=== PATIENT | male | born 1965 | race Caucasian/White ===

== ENCOUNTER 2017-09-28 14:55 | Emergency (ER) | payer BC ==
[~2017-09-28 14:55] MED LIST: ALPR.25 PO; RIVA15 PO; RIVA20 PO
[2017-09-28 15:52] VITALS: BP 148/80; PULSE 66; RESP 16; TEMP 98.4; O2SAT 97
--- NOTE | 2017-09-28 16:20 | RADRPT ---
EXAM DATE/TIME: 09/28/2017 16:10 [facility] COMPARISON: No previous studies available for comparison. INDICATIONS : Fell today at the bank MEDICAL HISTORY : None. SURGICAL HISTORY : None. ENCOUNTER: Initial ACUITY: 1 day PAIN SCORE: 8/10 LOCATION: Left wrist FINDINGS: Three view examination of the left wrist demonstrates no soft tissue swelling, dislocation, or fractu re. The carpal bones are in normal alignment. The joint spaces are maintained. Bony mineralization is normal. CONCLUSION: No acute fracture or dislocation. Mateo Simon MD on September 28, 2017 at 16:16 Board Certified Radiologist. This report was verified electronically.
--- NOTE | 2017-09-28 18:22 | PD ---
HPI Chief Complaint: Fall Time Seen by Provider: 18:00 Travel History International Travel<30 days: No Contact w/Intl Traveler<30days: No Traveled to known affect area: No History of Present Illness HPI 52-year-old male presents emergency department for evaluation of left wrist pain after slip and fall that occurred today. States that he was at his bank and he hit a wet puddle slipped and fell landing on his left hand and wrist. Patient describes a FOOSH injury. States right now his left wrist is tender to palpation and with range of motion, he denies numbness or tingling. Feels like he has decreased ROM of his wrist. Says the pain is mild-moderate and is concerned there is a fracture. Says his left elbow and arm are tender to palpation but has FROM. Says he has trouble with rotation of his arm secondary to pain. Says he is not sure if he hit his head does not believe he lost consciousness but he does have mild muscle stiffness. He denies chronic medical problems or medication use. He denies blood thinner or anticoagulant use. PFSH Past Medical History Medical History: Denies Significant Hx Anxiety: Yes ("sometimes") Depression: No Cancer: Yes (family history 1 degree relative lung cancer) Cardiovascular Problems: No Chest Pain: Yes (this admission) Endocrine: No Gastrointestinal Disorders: No Genitourinary: No Musculoskeletal: No Psychiatric: No Reproductive: No Respiratory: No Migraines: Yes Tetanus Vaccination: Unknown Past Surgical History Surgical History: No Previous Surgery Body Medical Devices: ivc filter Social History Alcohol Use: No Tobacco Use: No Substance Use: No Allergies-Medications (Allergen,Severity, Reaction): Coded Allergies: codeine (Unverified Allergy, Unknown, 09/28/17) Reported Meds & Prescriptions Reported Meds & Active Scripts Active No Active Prescriptions or Reported Medications Review of Systems Except as stated in HPI: all other systems reviewed are Neg Physical Exam Narrative GENERAL: Well-nourished, well-developed patient. SKIN: Focused skin assessment warm/dry. HEAD: Normocephalic. EYES: No scleral icterus. No injection or drainage. EOMI NECK: Supple, trachea midline. No JVD or lymphadenopathy. No midline tenderness , mild tenderness palpation of the left paraspinous region CARDIOVASCULAR: Regular rate and rhythm without murmurs, gallops, or rubs. RESPIRATORY: Breath sounds equal bilaterally. No accessory muscle use. GASTROINTESTINAL: Abdomen soft, non-tender, nondistended. MUSCULOSKELETAL: No cyanosis, or edema. Mild tenderness palpation to the left paraspinous region about the L1 region. No midline tenderness of the spine. Left upper extremity- tender to palpation of the elbow without deformities, full range of motion, neurovascular intact. TTP to snuffbox and wrist joint. [employer] strength 5 out of 5. BACK: Nontender without obvious deformity. No CVA tenderness. Data Data Last Documented VS Vital Signs Date Time Temp Pulse Resp B/P (MAP) Pulse Ox O2 Delivery O2 Flow Rate FiO2 09/28/17 15:52 98.4 66 16 148/80 (102) 97 Orders Orders Wrist, Complete ([id number]) (09/28/17 ) Ct Brain W/O Iv Contrast(Rout) (09/28/17 ) Ct Cerv Spine W/O Contrast (09/28/17 ) Elbow, Complete (4 Vws) (09/28/17 ) Humerus (Min 2vws) (09/28/17 ) Ed Discharge Order (09/28/17 19:40) Splinting (09/28/17 ) Fiberglass Thumb Spica Adult (09/28/17 ) MDM Medical Decision Making Medical Screen Exam Complete: Yes Emergency Medical Condition: Yes Differential Diagnosis Left wrist sprain, fracture, contusion Narrative Course 52-year-old male presents emergency department for evaluation of a FOOSH type injury resulting in left wrist and left arm pain. Says that he slipped on a wet floor at his bank landing on his left arm. Says that he does not believe he had his head but is unsure. Vital signs are stable. Imaging studies ordered. Last Impressions Wrist X-Ray 09/28/17 0000 Signed Impressions: Service Date/Time: Thursday, September 28, 2017 16:10 - CONCLUSION: No acute fracture or dislocation. Mateo Simon MD Humerus X-Ray 09/28/17 0000 Signed Impressions: Service Date/Time: Thursday, September 28, 2017 18:32 - CONCLUSION: Normal examination for a patient of this age. Sivakumar Jackson MD Head CT 09/28/17 0000 Signed Impressions: Service Date/Time: Thursday, September 28, 2017 18:36 - CONCLUSION: 1. No acute intracranial abnormalities. Sivakumar Jackson MD Elbow X-Ray 09/28/17 0000 Signed Impressions: Service Date/Time: Thursday, September 28, 2017 18:35 - CONCLUSION: Normal examination for a patient of this age. Sivakumar Jackson MD Cervical Spine CT 09/28/17 0000 Signed Impressions: Service Date/Time: Thursday, September 28, 2017 18:36 - CONCLUSION: Normal examination for a patient of this age. Sivakumar Jackson MD He denies chronic medical issues and medication use. Imaging studies given to patient. Patient will placed in a thumb spica splint. Advised to follow-up with orthopedics within 1 week. I stressed the importance of this follow-up. He may use Tylenol or Motrin per package instructions for pain relief. Diagnosis Primary Impression: Left wrist sprain Qualified Codes: S63.502A - Unspecified sprain of left wrist, initial encounter Additional Impressions: Arm contusion Qualified Codes: S40.022A - Contusion of left upper arm, initial encounter Head contusion Qualified Codes: S00.03XA - Contusion of scalp, initial encounter Referrals: Miles Velarde MD Orthopedist Departure Forms: Tests/Procedures, Work Release Enter return to work date: Sep 29, 2017 Special Instructions: Avoid excessive use of the left hand. Avoid heavy lifting. Until cleared by primary care physician or electronic data interchange specialist. Additional Instructions: Use ice or heat for symptom relief. Elevate the joint above the heart to reduce swelling. You may use compression with Omero wrap or similar to reduce swelling. If symptoms persist or worsen, return to the emergency department. Follow up with your primary care physician within 2 days. Follow-up with an orthopedic physician for further evaluation of your wrist pain. I recommend you follow-up within 7 days for further evaluation. Use the splint daily. Scripts No Active Prescriptions or Reported Meds Disposition: 01 DISCHARGE HOME Condition: Stable Love Bal Sep 28, 2017 18:22
--- NOTE | 2017-09-28 18:58 | RADRPT ---
EXAM DATE/TIME: 09/28/2017 18:36 [facility] COMPARISON: No previous studies available for comparison. INDICATIONS : Trauma: fall RADIATION DOSE: 66.34 CTDIvol (mGy) MEDICAL HISTORY : None SURGICAL HISTORY : None. ENCOUNTER: Initial ACUITY: 1 day PAIN SCALE: 8/10 LOCATION: cranial TECHNIQUE: Multiple contiguous axial images were obtained of the head. Using automated exposure control and adj ustment of the mA and/or kV according to patient size, radiation dose was kept as low as reasonably a chievable to obtain optimal diagnostic quality images. DICOM format image data is available electro nically for review and comparison. FINDINGS: CEREBRUM: The ventricles are normal for age. No evidence of midline shift, mass lesion, hemorrhage or acute in farction. No extra-axial fluid collections are seen. POSTERIOR FOSSA: The cerebellum and brainstem are intact. The 4th ventricle is midline. The cerebellopontine angle i s unremarkable. EXTRACRANIAL: The visualized portion of the orbits is intact. SKULL: The calvaria is intact. No evidence of skull fracture. CONCLUSION: 1. No acute intracranial abnormalities. Sivkaumar Jackson MD on September 28, 2017 at 18:52 Board Certified Radiologist. This report was verified electronically.
--- NOTE | 2017-09-28 19:13 | RADRPT ---
EXAM DATE/TIME: 09/28/2017 18:32 [facility] COMPARISON: No previous studies available for comparison. INDICATIONS : Left arm pain after falling today. MEDICAL HISTORY : None. SURGICAL HISTORY : None. ENCOUNTER: Initial ACUITY: 1 day PAIN SCORE: 8/10 LOCATION: Left elbow. FINDINGS: Two view examination of the left humerus demonstrates no evidence of fracture or dislocation. Bony m ineralization is normal. The soft tissue structures are intact. CONCLUSION: Normal examination for a patient of this age. Sivakumar Jackson MD on September 28, 2017 at 19:10 Board Certified Radiologist. This report was verified electronically.
--- NOTE | 2017-09-28 19:14 | RADRPT ---
EXAM DATE/TIME: 09/28/2017 18:35 [facility] COMPARISON: No previous studies available for comparison. INDICATIONS : Left elbow pain after falling today. MEDICAL HISTORY : None. SURGICAL HISTORY : None. ENCOUNTER: Initial ACUITY: 1 day PAIN SCORE: 8/10 LOCATION: Left elbow. FINDINGS: Multiple view examination of the left elbow demonstrates no soft tissue swelling, joint effusion, or fracture. The osseous structures are in normal alignment. Bony mineralization is normal. CONCLUSION: Normal examination for a patient of this age. Sivakumar Jackson MD on September 28, 2017 at 19:11 Board Certified Radiologist. This report was verified electronically.
--- NOTE | 2017-09-28 19:30 | RADRPT ---
EXAM DATE/TIME: 09/28/2017 18:36 [facility] COMPARISON: No previous studies available for comparison. INDICATIONS : Trauma; fall. RADIATION DOSE: 17.01 CTDIvol (mGy) MEDICAL HISTORY : None SURGICAL HISTORY : None. ENCOUNTER: Initial ACUITY: 1 day PAIN SCALE: 8/10 LOCATION: Bilateral neck TECHNIQUE: Volumetric scanning of the cervical spine was performed. Multiplanar reconstructions in the sagittal, coronal and oblique axial planes were performed. Using automated exposure control and adjustment o f the mA and/or kV according to patient size, radiation dose was kept as low as reasonably achievable to obtain optimal diagnostic quality images. DICOM format image data is available electronically f or review and comparison. FINDINGS: VERTEBRAE: Normal vertebral body height. ALIGNMENT: No evidence of subluxation. C2-C3: The bony spinal canal is normal in size. No evidence of disc bulge or herniation. The neural forami na are bilaterally patent. C3-C4: The bony spinal canal is normal in size. No evidence of disc bulge or herniation. The neural forami na are bilaterally patent. C4-C5: The bony spinal canal is normal in size. No evidence of disc bulge or herniation. The neural forami na are bilaterally patent. C5-C6: The bony spinal canal is normal in size. No evidence of disc bulge or herniation. The neural forami na are bilaterally patent. C6-C7: The bony spinal canal is normal in size. No evidence of disc bulge or herniation. The neural forami na are bilaterally patent. C7-T1: The bony spinal canal is normal in size. No evidence of disc bulge or herniation. The neural forami na are bilaterally patent. CONCLUSION: Normal examination for a patient of this age. Sivakumar Jackson MD on September 28, 2017 at 19:26 Board Certified Radiologist. This report was verified electronically.
== END 2017-09-28 20:27 | disposition home or self-care (01) ==
LOC: NED 14:55 → NEPA 20:27
DX: S63.502A Unspecified sprain of left wrist, initial encounter (principal); S40.022A Contusion of left upper arm, initial encounter; S00.03XA Contusion of scalp, initial encounter; W01.0XXA Fall on same level from slipping, tripping and stumbling without subsequent striking against object, initial encounter; Y92.510 Bank as the place of occurrence of the external cause
CPT/HCPCS: 70450; 72125; 73060; 73080; 73110; 99284; L3808